=== PATIENT | female | born 1945 | race Caucasian/White ===

== ENCOUNTER → 2016-11-06 | Outpatient (CLI) | payer MEDICARE, OTHER ==
[~2016-11-06] MED LIST: ASPIR 8181 MG PO; ASPIRIN EC325 MG PO; DILAUDID 2MG(HYD2 MG PO; LEVOTHROID (SY25 MCG PO; LIMU PO; LOPRESSOR50 MG PO; MIRALAX17 GM PO; NORVASC10 MG PO; PERCOCET 5-3251 EACH PO; PRAVACHOL40 MG PO; PRILOSEC20 MG PO; STOOL SOFTENER100 MG PO; TRIAMTERENE-HC1 EAC2 PO; ULTRAM50 MG PO; VALIUM5 MG PO
== END | disposition disaster alternative care site (69) ==
LOC: GOPD 10-31 → EDSTATUS → GRAD 09:25
DX: M25.512 Pain in left shoulder (principal); M19.012 Primary osteoarthritis, left shoulder; S43.431A Superior glenoid labrum lesion of right shoulder, initial encounter; X58.XXXA Exposure to other specified factors, initial encounter
CPT/HCPCS: J2001; J2250; J7030

== ENCOUNTER 2017-01-14 09:00 | Inpatient (IN) | payer MEDICARE, OTHER ==
[~2017-01-14] VITALS: Ht 157.5 cm; Wt 98.5 kg
--- NOTE | ~2017-01-14 | PUL ---
PATIENT'S NAME: HAZEL RAMIREZ [facility] AGE: 71 Y [address] ROOM: [address] [address] LOCATION: [id number] ADMIT DATE: 01/21/2017 Pulmonary DISCHARGE DATE: 01/23/2017 FAMILY PHYSICIAN: Dennis Wilson MD ATTENDING PHYSICIAN: Ruddy Lott NAME OF PROCEDURE: Overnight Pulse Oximetry DATE OF PROCEDURE: January 22, 2017 REASON FOR EXAM: Nocturnal hypoxemia RESULTS: The test was initially done on room air and then was supplemented with 1 L/min of oxygen. The total recording time was 7 hours, 33 minutes, and 12 seconds. The total valid sampling time of 7 hours 25 minutes and 48 seconds. Highest pulse was 81, lowest pulse was 57, and the mean pulse was 64. Highest SpO2 was 99%, lowest SpO2 was 75%, with a mean SpO2 of 87.3%. The three longest continuous times with saturation less than 88% where 1 hour 55 minutes, 53 minutes, and 48 minutes. The desaturation event index was 2. PHYSICIAN INTERPRETATION: The patient has significant nocturnal hypoxia and would qualify for supplemental oxygen as per Medicare criteria. MD SHAREE AGUILAR/anderson /[id number] dtt: 01/24/17 1101 , BRUNO GALO dtd: 01/24/17 0700
--- NOTE | ~2017-01-14 | OR ---
PATIENT'S NAME: JAMES RAMIREZH Floridalma [facility] AGE: 71 Y [address] ROOM: [place] [address] LOCATION: [facility] ADMIT DATE: 01/21/2017 OR/Procedure Report DISCHARGE DATE: FAMILY PHYSICIAN: Dennis Wilson MD ATTENDING PHYSICIAN: OSVALDO SINGH SURGEON: Osvaldo Singh MD SHUTTLE FILLER: José Antonio Zuleta PA-C and Alphonso Kaplan CST/CRANE HOOKER. DATE OF PROCEDURE: 01/21/2017 PREOPERATIVE DIAGNOSES: Left shoulder rotator cuff arthropathy (large rotator cuff tear with associated early left shoulder glenohumeral degenerative joint disease). POSTOPERATIVE DIAGNOSES: Left shoulder rotator cuff arthropathy (large rotator cuff tear with associated early left shoulder glenohumeral degenerative joint disease). Degenerative glenoid labral tear and partial thickness biceps tendon tear. PROCEDURES PERFORMED: 1. Left reverse total shoulder arthroplasty. 2. Left shoulder biceps tenodesis. ANESTHESIA: General endotracheal anesthesia plus subcutaneous and periarticular local anesthesia (ropivacaine with epinephrine). ESTIMATED BLOOD LOSS: Approximately 100 mL. DRAINS: None. SPECIMEN: None. COMPLICATIONS: None. [facility]: [facility]. Pia [employer] comprehensive reverse total shoulder arthroplasty system with 25-mm non- cemented porous plasma glenoid baseplate and 36 mm diameter glenosphere. A 4.75 mm glenoid baseplate locking screws x3. A 6.5 mm glenoid baseplate locking screw x1. Size 10 x 83 mm uncemented humeral stem with standard [employer]COM[employer] glenoid polyethylene liner (36 mm inner diameter). A 44 mm humeral baseplate. INDICATION FOR PROCEDURE: Ms. Ramirez is a 71-year-old female, presenting with left shoulder pain and weakness. MRI has confirmed the presence of a very large supraspinatus tear with associated biceps-labral pathology and early PATIENT'S NAME: JAMES RAMIREZH Floridalma [facility] AGE: 71 Y [address] ROOM: [place] [address] LOCATION: [facility] ADMIT DATE: 01/21/2017 OR/Procedure Report DISCHARGE DATE: FAMILY PHYSICIAN: Dennis Wilson MD ATTENDING PHYSICIAN: OSVALDO SINGH glenohumeral degenerative changes. MRI also suggest attenuation of the infraspinatus tendon. There was retraction of the supraspinatus to the glenoid margin, and the radiologist has noted muscle atrophy of the supraspinatus. The risks, benefits, limitations, and alternatives to this procedure have been thoroughly reviewed, and informed consent has been granted. We have specifically reviewed the risks and implications of infection, neurovascular complications, stiffness, instability, wear, loosening, and potential need for revision. The patient has given informed consent to undergo a rotator cuff repair. (if it is determined that the rotator cuff pathology is not as severe as that which was predicted on the preoperative MRI). DESCRIPTION OF PROCEDURE: The patient was placed in a modified beach chair position after administration of general endotracheal anesthesia and prophylactic antibiotics. The left shoulder and left upper extremity were prepped and draped with vigilant sterile technique. Examination under anesthesia demonstrated no active skin lesions or masses. There was no instability. Passive external rotation was 60 degrees. Passive forward elevation was 175 degrees. The left shoulder was approached through a standard deltopectoral incision. The cephalic vein was identified and mobilized laterally with the deltoid. The axillary nerve was identified and was vigilantly protected throughout the entire case. The subscapularis tendon appeared normal. There was a large amount of fluid within the biceps tendon sheath. The biceps tendon sheath was divided longitudinally. There was partial-thickness tearing of the biceps tendon. There was significant flattening of the intra-articular portion of the biceps tendon and marked instability of the superior glenoid labrum. There was extensive degenerative tearing of the anterosuperior, anterior, and superior glenoid labrum. The biceps was released at the proximal margin of the intertubercular groove and tagged with #1 Ethibond. The biceps was subsequently tenodesed into the intertubercular groove using all [address] [facility] SureLock suture anchor. The tenodesis was completed immediately prior to insertion of the final humeral component. The infraspinatus tendon was partially torn and attenuated. The supraspinatus tendon was torn and retracted to the glenoid margin. The subscapularis tendon was divided longitudinally. The shoulder was dislocated anteriorly. There were moderate grade 3 degenerative changes at the humeral head and a 1 cm diameter region of full-thickness articular cartilage loss superomedially. The humeral head resection was performed with an oscillating saw. The proximal humerus was reamed by hand with tapered reamers up to a size 10. The size 10 reamer tightly engaged the endosteal cortex of the proximal humerus. The humerus was broached to a size 10. The PATIENT'S NAME: HAZEL RAMIREZ [facility] AGE: 71 Y [address] ROOM: [address] [address] LOCATION: [facility] ADMIT DATE: 01/21/2017 OR/Procedure Report DISCHARGE DATE: FAMILY PHYSICIAN: Dennis Wilson MD ATTENDING PHYSICIAN: OSVALDO SINGH size 10 broach obtained excellent axial and rotational stability. Circumferential glenoid exposure was obtained. The intra-articular remnant of the long head of the biceps tendon was excised. Degenerative glenoid labral remnants were excised. There were moderate grade 3 degenerative changes throughout the majority of the glenoid. The glenoid face was reamed over a guidewire. The glenoid baseplate was impacted into position and obtained an excellent press-fit. Supplemental fixation consisted of a central 6.5 mm locking screw (which obtained superb purchase) and three peripheral locking screws (all of which obtained good purchase). The glenoid baseplate was thoroughly irrigated and dried, and the glenosphere was impacted into position. Direct visualization and circumferential digital palpation confirmed full, secure seating of the glenosphere. Trial reductions were performed with the trial humeral component, and there was excellent range of motion, excellent soft-tissue tension, and good stability without impingement and without significant tension on the axillary nerve. The trial humeral components were removed. The final humeral stem was impacted into position and obtained excellent axial and rotational stability. The trunnion was thoroughly irrigated and dried prior to impaction of the final humeral baseplate. A final reduction was performed. There was good stability with internal and external rotation with the arm at the side, with the arm forward flexed to 90 degrees, and with the arm abducted to 90 degrees. Hemostasis was excellent throughout the entire case. The incision was thoroughly irrigated with bacteriostatic pulsatile saline lavage at this point as well as several times throughout the case. The subscapularis tendon was repaired with multiple [id number] interrupted #2 Orthocord sutures. Subcutaneous tissues and periarticular soft tissues were infiltrated with local anesthetic. The subscapularis tendon was repaired with multiple [id number] interrupted #2 Orthocord sutures. The incision was closed with multiple simple deep interrupted 0 Vicryl sutures followed by superficial buried interrupted 2-0 Vicryl sutures, followed by a running subcuticular 3-0 Monocryl suture, followed by Dermabond, followed by Steri-Strips with benzoin. The dressing consisted of an occlusive Mepilex dressing. PATIENT'S NAME: HAZEL RAMIREZ [facility] AGE: 71 Y [address] ROOM: [place] [address] LOCATION: [facility] ADMIT DATE: 01/21/2017 OR/Procedure Report DISCHARGE DATE: FAMILY PHYSICIAN: Dennis Wilson MD ATTENDING PHYSICIAN: OSVALDO SINGH The patient was extubated and transported to the Postanesthesia Care Unit in stable, comfortable condition. It should be noted that the physician's medical support assistant played an active, integral role throughout this entire operation. By providing expert retraction, they greatly facilitated and expedited safe and effective exposure of the proximal humerus and glenoid for preparation and implantation of the components. They were also actively involved in patient's positioning, prepping and draping, as well as wound closure. MD MONICA MORALES/pascale /[id number] d: 01/21/177 t: 01/24/170, OPERATIVE SUMMARY
[~2017-01-14 09:00] MED LIST changes: -DILAUDID 2MG(HYD2 MG PO; -MIRALAX17 GM PO; -VALIUM5 MG PO
[2017-01-21 11:21] LABS: INR - (THERAPEUTIC) 0.95 (0.92-1.07)
[2017-01-23] MEDS ORDERED: MIRALAX17 GM PO (14:00)
[2017-01-23] MEDS ORDERED: DILAUDID 2MG(HYD2 MG PO (14:01)
[2017-01-23] MEDS ORDERED: VALIUM5 MG PO (14:02)
== END 2017-01-23 14:30 | disposition disaster alternative care site (69) | DRG 483 ==
LOC: G3N 01-21 10:15
PROVIDERS: ADMIT Orthopaedic Surgery
DX: M19.012 Primary osteoarthritis, left shoulder (principal); M75.102 Unspecified rotator cuff tear or rupture of left shoulder, not specified as traumatic
CPT/HCPCS: A9270; C1713; C1776; G0008; J0690; J1170; J1885; J2001; J2250; J2405; J2795; J3010; J7030; J7120